=== PATIENT | female | born 1995 | race Caucasian/White ===

== ENCOUNTER 2018-04-23 16:29 | Emergency (ER) | payer BC, OTHER ==
[2018-04-23] MEDS ORDERED: LORAZEPAM 1 MG TABLET PO ONE (17:05)
--- NOTE | 2018-04-23 17:08 | ER Document Report ---
ED Medical Screen (RME) - General Chief Complaint: Chest Pain Stated Complaint: CHEST PAIN Time Seen by Provider: 04/23/18 17:00 Notes: RAPID MEDICAL EVALUATION DISCLOSURE I have seen this patient as part of a Rapid Medical Evaluation and, if applicable, placed any initially appropriate orders. The patient will be seen and fully evaluated, including a full history and physical exam, by a provider ( in Main ED or Fast Track) when a room becomes available. 22-year-old female here with 2 weeks of cough productive of green and clear sputum as well as shortness of breath and today started to have some chest pain radiating to the left shoulder with palpitations. She was seen at the urgent care and was sent here for further evaluation. Patient has tried over-the- counter remedies. She denies any prior history of pneumonia. EXAM Minimal diffuse coarse breath sounds, right greater than left Moderately tachycardic, regular rhythm NOTE Patient states she is very anxious about needles Ativan ordered to treat anxiety and allow placement of IV TRAVEL OUTSIDE OF THE [place] IN LAST 30 DAYS: No - Related Data Allergies/Adverse Reactions: No Known Allergies Allergy (Verified 04/23/18 17:02) Past Medical History - Social History Chew tobacco use (# tins/day): No Frequency of alcohol use: Occasional Drug Abuse: None Renal/ Medical History: Denies: Hx Peritoneal Dialysis - Immunizations Hx Diphtheria, Pertussis, Tetanus Vaccination: Yes
--- NOTE | 2018-04-23 18:10 | ER Document Report ---
ED General - General Chief Complaint: Chest Pain Stated Complaint: CHEST PAIN Time Seen by Provider: 04/23/18 17:00 Mode of Arrival: Ambulatory Information source: Patient Notes: 22 year old female presents to the ED with complaints of cough for the last 2 weeks. Productive in nature. Green sputum. Today began having shortness of breath and chest pain. Pain is a sharp sensation in the L lateral chest. No radiation. No alleviating or exacerbating factors. Went to urgent care today and was sent to the ED for further workup. TRAVEL OUTSIDE OF THE [place] IN LAST 30 DAYS: No - HPI Onset: Last week Onset/Duration: Gradual Quality of pain: Stabbing Severity: Mild Associated symptoms: Productive cough Exacerbated by: Denies Relieved by: Denies Similar symptoms previously: No Recently seen / treated by doctor: No - Related Data Allergies/Adverse Reactions: No Known Allergies Allergy (Verified 04/23/18 17:02) Past Medical History - Social History Smoking Status: Never Smoker Chew tobacco use (# tins/day): No Frequency of alcohol use: Occasional Drug Abuse: None Family History: Reviewed & Not Pertinent Patient has suicidal ideation: No Patient has homicidal ideation: No Renal/ Medical History: Denies: Hx Peritoneal Dialysis - Immunizations Hx Diphtheria, Pertussis, Tetanus Vaccination: Yes Review of Systems - Review of Systems Constitutional: No symptoms reported EENT: No symptoms reported Cardiovascular: Chest pain, Palpitations Respiratory: Cough, Short of breath, Sputum Gastrointestinal: No symptoms reported Genitourinary: No symptoms reported Musculoskeletal: No symptoms reported Skin: No symptoms reported Neurological/Psychological: No symptoms reported -: Yes All other systems reviewed and negative Physical Exam - Vital signs Vitals: Resp Pulse Ox 22 H 99 04/23/18 18:00 04/23/18 18:00 - Notes Notes: PHYSICAL EXAMINATION: GENERAL: Well-appearing, well-nourished and in no acute distress. HEAD: Atraumatic, normocephalic. EYES: Pupils equal round and reactive to light, extraocular movements intact, conjunctiva are normal. ENT: Nares patent, oropharynx clear without exudates. Moist mucous membranes. NECK: Normal range of motion, supple without lymphadenopathy LUNGS: Breath sounds clear to auscultation bilaterally and equal. No wheezes rales or rhonchi. HEART: Tachycardic. S1S2 appreciated. No murmurs. ABDOMEN: Soft, nontender, nondistended abdomen. No guarding, no rebound. No masses appreciated. Female : deferred Musculoskeletal: Normal range of motion, no pitting or edema. No cyanosis. NEUROLOGICAL: Cranial nerves grossly intact. Normal speech, normal gait. Normal sensory, motor exams PSYCH: Normal mood, normal affect. SKIN: Warm, Dry, normal turgor, no rashes or lesions noted. Course - Re-evaluation Re-evalutation: 04/23/18 22:05 Labs and imaging obtained. Troponin was within normal limits. CT of the chest was done as the patient is tachycardic. No PE was appreciated. No pneumonia. No pneumothorax. Patient does have an elevated white blood cell count. UA was done and is normal. Urine is negative. Urine drug screen is negative. I discussed admission with the patient as she continues to be tachycardic and symptomatic. Patient is refusing admission. I told the patient she would have to leave AGAINST MEDICAL ADVICE. I discussed the risks with the patient. The patient understands that she could or her condition could worsen by leaving AGAINST MEDICAL ADVICE. Patient is of sound mental capacity. - Vital Signs Vital signs: Temp Pulse Resp BP Pulse Ox 20 112/74 100 04/23/18 20:34 04/23/18 20:34 04/23/18 20:34 - Laboratory Result Diagrams: 04/23/18 17:45 04/23/18 17:45 Laboratory results interpreted by me: 04/23/18 04/23/18 04/23/18 17:15 17:45 17:45 WBC 23.3 H Seg Neuts % (Manual) 85 H Lymphocytes % (Manual) 7 L Abs Neuts (Manual) 19.8 H Abs Monocytes (Manual) 1.9 H Calcium 10.3 H Total Protein 8.5 H TSH 0.32 L Urine Ketones Urine Blood 04/23/18 18:31 WBC Seg Neuts % (Manual) Lymphocytes % (Manual) Abs Neuts (Manual) Abs Monocytes (Manual) Calcium Total Protein TSH Urine Ketones 80 H Urine Blood MODERATE H - EKG Interpretation by Me Additional EKG results interpreted by me: 04/23/18 18:13 EKG: Ventricular rate 138, MS interval 148, QRS duration 66, QTc 418, sinus tachycardia. No ischemic changes. Discharge - Discharge Clinical Impression: Palpitation Chest pain Qualifiers: Chest pain type: unspecified Qualified Code(s): R07.9 - Chest pain, unspecified Disposition: AGAINST MEDICAL ADVICE
[2018-04-23] MEDS: NORMAL SALINE 1000 ML 1,000 ML IV PRN ×2 (18:11→18:12)
[2018-04-23 18:14] LABS: HEMATOCRIT 42.5 % (36.0-47.0); HEMOGLOBIN 14.4 g/dL (12.0-15.5); MEAN CORPUSCULAR HEMOGLOBIN 29.9 pg (27.0-33.4); MEAN CORPUSCULAR HGB CONC 33.9 g/dL (32.0-36.0); MEAN CORPUSCULAR VOLUME 88 fl (80-97); PLATELET COUNT 297 10^3/uL (150-450); RED BLOOD COUNT 4.82 10^6/uL (3.72-5.28); RED CELL DISTRIBUTION WIDTH 12.9 % (11.5-14.0); WHITE BLOOD COUNT 23.3 10^3/uL (4.0-10.5)
--- NOTE | 2018-04-23 18:32 | RADIOLOGY REPORT (SQ) ---
EXAM DESCRIPTION: CHEST 2 VIEWS COMPLETED DATE/TIME: 04/23/2018 6:20 pm REASON FOR STUDY: eval pneumonia COMPARISON: None. EXAM PARAMETERS: NUMBER OF VIEWS: two views TECHNIQUE: Digital Frontal and Lateral radiographic views of the chest acquired. RADIATION DOSE: NA LIMITATIONS: none FINDINGS: LUNGS AND PLEURA: No opacities, masses or pneumothorax. No pleural effusion. MEDIASTINUM AND HILAR STRUCTURES: No masses or contour abnormalities. HEART AND VASCULAR STRUCTURES: Heart normal size. No evidence for failure. BONES: No acute findings. HARDWARE: None in the chest. OTHER: No other significant finding. IMPRESSION: NO ACUTE RADIOGRAPHIC FINDING IN THE CHEST. TECHNICAL DOCUMENTATION: JOB ID: [id number] [employer]- All Rights Reserved Reading location - IP/workstation name: [email or web address]
[2018-04-23 18:40] LABS: ABSOLUTE LYMPHOCYTES# (MANUAL) 1.6 10^3/uL (0.5-4.7); ABSOLUTE MONOCYTES # (MANUAL) 1.9 10^3/uL (0.1-1.4); ABSOLUTE NEUTROPHILS# (MANUAL) 19.8 10^3/uL (1.7-8.2); BASOPHILS % (MANUAL) 0 % (0-2); EOSINOPHILS % (MANUAL) 0 % (0-6); LYMPHOCYTES % (MANUAL) 7 % (13-45); MONOCYTES % (MANUAL) 8 % (3-13); PLATELET COMMENT ADEQUATE; SEGMENTED NEUTROPHILS % (MAN) 85 % (42-78); TOTAL CELLS COUNTED 100; TOXIC GRANULATION SLIGHT
[2018-04-23 18:44] LABS: ALANINE AMINOTRANSFERASE 33 U/L (9-52); ALBUMIN 4.9 g/dL (3.5-5.0); ALKALINE PHOSPHATASE 54 U/L (38-126); ANION GAP 16 (5-19); ASPARTATE AMINO TRANSFERASE 33 U/L (14-36); BILIRUBIN,DIRECT 0.3 mg/dL (0.0-0.4); BILIRUBIN,TOTAL 0.7 mg/dL (0.2-1.3); BLOOD UREA NITROGEN 15 mg/dL (7-20); CALCIUM 10.3 mg/dL (8.4-10.2); CARBON DIOXIDE 23 mmol/L (22-30); CHLORIDE 102 mmol/L (98-107); GLUCOSE 84 mg/dL (75-110); POTASSIUM 4.5 mmol/L (3.6-5.0); TOTAL PROTEIN 8.5 g/dL (6.3-8.2)
[2018-04-23 19:41] LABS: APPEARANCE,URINE CLEAR; BILIRUBIN,URINE NEGATIVE (NEGATIVE); COLOR,URINE YELLOW; GLUCOSE, URINE NEGATIVE (NEGATIVE); KETONES,URINE 80 mg/dL (NEGATIVE); LEUKOCYTE ESTERASE,URINE NEGATIVE (NEGATIVE); NITRITE,URINE NEGATIVE (NEGATIVE); PROTEIN,URINE NEGATIVE (NEGATIVE); URINE SPECIFIC GRAVITY 1.013; UROBILINOGEN,URINE NEGATIVE mg/dL (<2.0)
[2018-04-23 20:08] LABS: URINE AMPHETAMINES SCREEN NEGATIVE; URINE BARBITURATES SCREEN NEGATIVE; URINE BENZODIAZEPINES SCREEN NEGATIVE; URINE COCAINE SCREEN NEGATIVE; URINE MARIJUANA (THC) SCREEN NEGATIVE; URINE METHADONE SCREEN NEGATIVE; URINE PHENCYCLIDINE SCREEN NEGATIVE
--- NOTE | 2018-04-23 20:42 | RADIOLOGY REPORT (SQ) ---
EXAM DESCRIPTION: CTA CHEST COMPLETED DATE/TIME: 04/23/2018 8:07 pm REASON FOR STUDY: palpitations COMPARISON: Chest x-ray 04/23/2018 TECHNIQUE: CT scan of the chest performed using helical scanning technique with dynamic intravenous contrast injection. Images reviewed with lung, soft tissue and bone windows. Reconstructed coronal and sagittal MPR images reviewed. Additional 3 dimensional post-processing performed to develop Maximal Intensity Projection images (IA P). All images stored on PACS. All CT scanners at this facility use dose modulation, iterative reconstruction, and/or weight based d osing when appropriate to reduce radiation dose to as low as reasonably achievable (ALARA). [facility]: Dose Right [facility]: CareDose [facility]: Dose Right [facility]: Teradose 4D [facility]: [employer] CONTRAST TYPE AND DOSE: contrast/concentration: Isovue 370.00 mg/ml; Total Contrast Delivered: 76.0 ml; Total Saline Delivered: 70.0 ml Contrast bolus optimized for the pulmonary arteries. Not diagnostic for the aorta. RENAL FUNCTION: BUN 15 creatinine 0.67 RADIATION DOSE: CT Rad equipment meets quality standard of care and radiation dose reduction techniq ues were employed. CTDIvol: 19.8 - 20.6 mGy. DLP: 770 mGy-cm. . LIMITATIONS: None. FINDINGS: LUNGS AND PLEURA: No masses, infiltrates, or pneumothorax. No pleural effusions or pleura l calcifications. AORTA AND GREAT VESSELS: No aneurysm. Contrast bolus not optimized for the aorta. HEART: No pericardial effusion. No significant coronary artery calcifications. PULMONARY ARTERIES: No emboli visualized in the main pulmonary arteries or the segmental branches. HILAR AND MEDIASTINAL STRUCTURES: No identified masses or abnormal nodes. HARDWARE: None in the chest. UPPER ABDOMEN: No significant findings. Limited exam. THYROID AND OTHER SOFT TISSUES: No masses. No adenopathy. BONES: No acute or significant finding. 3D MIPS: Confirm above findings. OTHER: No other significant finding. IMPRESSION: NORMAL CTA OF THE CHEST. NO PULMONARY EMBOLI. COMMENT: Quality ID # [id number]: Final reports with documentation of one or more dose reduction techniques (e.g., Automated exposure control, adjustment of the mA and/or kV according to patient size, use of iterative reconstruction technique) TECHNICAL DOCUMENTATION: JOB ID: [id number] [employer]- All Rights Reserved Reading location - IP/workstation name: [email or web address]
[2018-04-23 21:11] VITALS: BP 112/74
[2018-04-23 21:22] LABS: FREE T4 (FREE THYROXINE) 1.32 ng/dL (0.78-2.19)
[2018-04-23 21:36] LABS: THYROID STIMULATING HORMONE 0.32 uIU/mL (0.47-4.68)
[2018-04-23 22:00] LABS: A TYPE INFLUENZA AG NEGATIVE (NEGATIVE); B INFLUENZA AG NEGATIVE (NEGATIVE)
--- NOTE | 2018-04-25 00:20 | EKG REPORT ---
SEVERITY:- OTHERWISE NORMAL ECG - SINUS TACHYCARDIA : Confirmed by: Zaira Looney MD 25-Apr-2018 00:20:10
== END 2018-04-23 22:20 | disposition left against medical advice (07) ==
LOC: ER 16:29
DX: R07.9 Chest pain, unspecified (principal); R00.2 Palpitations; R00.0 Tachycardia, unspecified; R05 Cough; R06.02 Shortness of breath; D72.829 Elevated white blood cell count, unspecified; Z53.20 Procedure and treatment not carried out because of patient's decision for unspecified reasons
CPT/HCPCS: 93005; 99285; 96360; 36415; 87040; 84439; 84443; 85025; 81025; 80053; 81001; 84484; 80307; 83605; 87804; 71046; 71275; 93010; J7030

== ENCOUNTER 2018-04-24 14:26 | Observation (INO) | payer BC ==
[2018-04-24] MEDS ORDERED: VANCOMYCIN HCL INJ 1000 MG VIAL IV ONE ×2 (14:45→22:09)
[2018-04-24] MEDS ORDERED: ACETAMINOPHEN 325 MG TABLET PO ONE (14:45)
--- NOTE | 2018-04-24 14:48 | ER Document Report ---
ED Medical Screen (RME) - General Chief Complaint: Breast Lump Stated Complaint: PAIN IN LEFT BREAST Time Seen by Provider: 04/24/18 14:40 Notes: RAPID MEDICAL EVALUATION DISCLOSURE I have seen this patient as part of a Rapid Medical Evaluation and, if applicable, placed any initially appropriate orders. The patient will be seen and fully evaluated, including a full history and physical exam, by a provider ( in Main ED or Fast Track) when a room becomes available. 22-year-old female back again today with continued symptoms but now is also having left breast pain redness (without drainage) and fever. She was seen yesterday and had a significant leukocytosis, tachycardia, and decided to leave AGAINST MEDICAL ADVICE when the ED physician recommended admission to the hospital. She states that when she went home, she told her mother and her mother became mad at her that she left AMA. She is now back and states she is willing to stay for admission. EXAM CTAB Tachycardic Left Lateral Breast with Erythema TRAVEL OUTSIDE OF THE [place] IN LAST 30 DAYS: No - Related Data Allergies/Adverse Reactions: No Known Allergies Allergy (Verified 04/24/18 14:28) Past Medical History - Social History Chew tobacco use (# tins/day): No Frequency of alcohol use: Occasional Drug Abuse: None Renal/ Medical History: Denies: Hx Peritoneal Dialysis - Immunizations Hx Diphtheria, Pertussis, Tetanus Vaccination: Yes Physical Exam - Vital signs Vitals: Temp Pulse Resp BP Pulse Ox 100.0 F 116 H 16 141/78 H 98 04/24/18 14:33 04/24/18 14:33 04/24/18 14:33 04/24/18 14:33 04/24/18 14:33 Course - Vital Signs Vital signs: Temp Pulse Resp BP Pulse Ox 100.0 F 116 H 16 141/78 H 98 04/24/18 14:33 04/24/18 14:33 04/24/18 14:33 04/24/18 14:33 04/24/18 14:33
[2018-04-24] MEDS ORDERED: LORAZEPAM INJ 2 MG/1 ML VIAL IM ONE (15:14)
[2018-04-24 15:52] LABS: ABSOLUTE LYMPHOCYTES (AUTO) 1.6 10^3/uL (0.5-4.7); ABSOLUTE MONOCYTES (AUTO) 1.1 10^3/uL (0.1-1.4); ABSOLUTE NEUT (AUTO) 7.6 10^3/uL (1.7-8.2); BASOPHILS % (AUTO) 0.2 % (0-2); EOSINOPHILS % (AUTO) 0.3 % (0-6); HEMATOCRIT 37.6 % (36.0-47.0); HEMOGLOBIN 12.8 g/dL (12.0-15.5); LYMPHOCYTES % (AUTO) 15.2 % (13-45); MEAN CORPUSCULAR HEMOGLOBIN 30.3 pg (27.0-33.4); MEAN CORPUSCULAR HGB CONC 33.9 g/dL (32.0-36.0); MEAN CORPUSCULAR VOLUME 89 fl (80-97); MONOCYTES % (AUTO) 10.3 % (3-13); PLATELET COUNT 253 10^3/uL (150-450); RED BLOOD COUNT 4.22 10^6/uL (3.72-5.28); RED CELL DISTRIBUTION WIDTH 12.8 % (11.5-14.0); TOTAL CELLS COUNTED % (AUTO) 100 %; WHITE BLOOD COUNT 10.3 10^3/uL (4.0-10.5)
[2018-04-24 16:15] LABS: ALANINE AMINOTRANSFERASE 19 U/L (9-52); ALBUMIN 4.3 g/dL (3.5-5.0); ALKALINE PHOSPHATASE 34 U/L (38-126); ANION GAP 11 (5-19); ASPARTATE AMINO TRANSFERASE 26 U/L (14-36); BILIRUBIN,DIRECT 0.3 mg/dL (0.0-0.4); BILIRUBIN,TOTAL 0.7 mg/dL (0.2-1.3); BLOOD UREA NITROGEN 9 mg/dL (7-20); CALCIUM 9.2 mg/dL (8.4-10.2); CARBON DIOXIDE 27 mmol/L (22-30); CHLORIDE 107 mmol/L (98-107); GLUCOSE 116 mg/dL (75-110); POTASSIUM 3.8 mmol/L (3.6-5.0); SODIUM 144.5 mmol/L (137-145); TOTAL PROTEIN 7.6 g/dL (6.3-8.2)
--- NOTE | 2018-04-24 16:18 | ER Document Report ---
ED General - General Chief Complaint: Breast Lump Stated Complaint: PAIN IN LEFT BREAST Time Seen by Provider: 04/24/18 14:40 TRAVEL OUTSIDE OF THE [place] IN LAST 30 DAYS: No - HPI Notes: Patient is a 22-year-old female with no significant past medical history presents to the ED complaining of left lateral breast pain that radiates up into her axilla with redness around the areola and tracking towards the axilla as well 1 day. Patient states that she has had pain in that area over the last couple days, but noticed the redness today. Patient also states that she has had a fast heart rate and did have shortness of breath/chest pain yesterday which has since resolved. Patient states that she has had a dry nonproductive cough for the last 2 weeks. She was evaluated yesterday and had a full workup that was unremarkable for acute pathology aside from a low TSH. She has been eating and drinking without any difficulties. She is urinating normally and having normal bowel movements. Denies any smoking, IV drug use, cancer, previous DVT/PE, prolonged immobilization, recent surgery/trauma, hormone use. Denies any headache, fever, neck pain, URI, sore throat, chest pain, syncope, cough, shortness of breath, wheeze, dyspnea, abdominal pain, nausea/vomiting/ diarrhea, urinary retention, dysuria, hematuria. - Related Data Allergies/Adverse Reactions: No Known Allergies Allergy (Verified 04/24/18 14:28) Past Medical History - Social History Smoking Status: Never Smoker Chew tobacco use (# tins/day): No Frequency of alcohol use: Occasional Drug Abuse: None Family History: Reviewed & Not Pertinent Patient has suicidal ideation: No Patient has homicidal ideation: No Renal/ Medical History: Denies: Hx Peritoneal Dialysis - Immunizations Hx Diphtheria, Pertussis, Tetanus Vaccination: Yes Review of Systems - Review of Systems -: Yes All other systems reviewed and negative Physical Exam - Vital signs Vitals: Temp Pulse Resp BP Pulse Ox 100.0 F 116 H 16 141/78 H 98 04/24/18 14:33 04/24/18 14:33 04/24/18 14:33 04/24/18 14:33 04/24/18 14:33 - Notes Notes: PHYSICAL EXAMINATION: Accompanied by female nurse, Sonia. GENERAL: Well-appearing, well-nourished and in no acute distress. HEAD: Atraumatic, normocephalic. EYES: Pupils equal round and reactive to light, extraocular movements intact, sclera anicteric, conjunctiva are normal. ENT: Nares patent and without discharge. oropharynx clear without exudates. No tonsilar hypertrophy or erythema. Moist mucous membranes. NECK: Normal range of motion, supple without lymphadenopathy Breast: There is erythema around the areola and tracking into the left axilla. + tenderness to the left lateral breast with palpable mass/inflamed tissue palpated deep left breast. LUNGS: Breath sounds clear to auscultation bilaterally and equal. No wheezes rales or rhonchi. HEART: Tachycardia regular rhythm without murmurs, rubs, gallops. ABDOMEN: Soft, nontender, nondistended abdomen. No guarding, no rebound. No masses appreciated. Normal bowel sounds present. No CVA tenderness bilaterally. Musculoskeletal: FROM to passive/active. Strength 5+/5. Extremities: No cyanosis, clubbing, or edema b/l. Peripheral pulses 2+. Capillary refill less than 3 seconds. NEUROLOGICAL: Cranial nerves grossly intact. Normal speech, normal gait. PSYCH: Normal mood, normal affect. SKIN: Warm, Dry, normal turgor, no rashes or lesions noted. Course - Re-evaluation Re-evalutation: 04/24/18 16:40 Pt starting becoming flush with a rash after starting vanc. benadryl and pepcid were given IV. 04/24/18 18:05 Pt had complete resolution of presumed reaction with Vanc. We will now start cleocin. Dr. Chambers was consulted who also eval'd the patient. Recommended US and consult with general surgeon. I did notify Dr. Vance who is aware of this patient and wanted the US as well prior to his eval. 04/24/18 18:59 US showed mass vs complex cyst/abscess. With patient's presentation, we suspect abscess/infection. Dr. Vance eval'd the patient and will accept to admission under his care. He would like her to have Morphine IV as well as Lactic ordered. NPO after midnight. - Vital Signs Vital signs: Temp Pulse Resp BP Pulse Ox 98.3 F 116 H 26 H 130/84 H 97 04/24/18 18:26 04/24/18 14:33 04/24/18 16:01 04/24/18 16:00 04/24/18 16:25 - Laboratory Result Diagrams: 04/24/18 15:31 04/24/18 15:31 Laboratory results interpreted by me: 04/24/18 04/24/18 15:31 15:31 Glucose 116 H Alkaline Phosphatase 34 L TSH 0.46 L Discharge - Discharge Clinical Impression: Breast abscess Condition: Stable Disposition: ADMITTED INPATIENT Admitting Provider: Surgicalist - Dr. Vance Unit Admitted: Surgical Floor
[2018-04-24] MEDS ORDERED: DIPHENHYDRAMINE HCL 50 MG/ML VIAL IV ONE (16:38)
[2018-04-24] MEDS ORDERED: FAMOTIDINE INJ/PF 20 MG/2 ML SDV IV ONE (16:38)
[2018-04-24 17:07] LABS: FREE T3 3.01 pg/mL (2.77-5.27); FREE T4 (FREE THYROXINE) 1.16 ng/dL (0.78-2.19)
[2018-04-24 17:21] LABS: THYROID STIMULATING HORMONE 0.46 uIU/mL (0.47-4.68)
[2018-04-24] MEDS ORDERED: CLINDAMYCIN 600 MG/D5W RTU 600 MG/50 ML RTUPB IV ONE (18:04)
--- NOTE | 2018-04-24 18:13 | RADIOLOGY REPORT (SQ) ---
EXAM DESCRIPTION: U/S BREAST UNILATERAL LIMITED COMPLETED DATE/TIME: 04/24/2018 6:03 pm REASON FOR STUDY: left lateral breast mass/infection COMPARISON: None TECHNIQUE: Static and Realtime grayscale interrogation of focal area(s) of concern in the left breas t(s) acquired. Selected color doppler/spectral images saved to PACS. LIMITATIONS: None. FINDINGS: Masses:Complex hypoechoic 2 o'clock 2 cm from nipple measuring 1.3 x 1.3 x 0.9 cm. Robotic Technician al echoes. No definite through transmission. Architecture:No alteration of normal morphology. No skin thickening. Generalized edema. . Other: None. IMPRESSION: Mass versus complex cyst/abscess in the left breast. BIRAD: 1 Negative. RECOMMENDATION: RECOMMENDED FOLLOW-UP: Follow-up as clinically indicated. COMMENT: The [employer] (A[employer]) has developed recommendations for screening MRI of the breasts in certain patient populations, to be used in conjunction with mammography. Breast MRI s urveillance may be appropriate for women with more than 20% lifetime risk of developing breast cancer as determined by genetic testing, significant family history of the disease, or history of mantle r adiation for Hodgkins Disease. ACR Practice Guidelines 2008. TECHNICAL DOCUMENTATION: FINDING NUMBER: (1) ASSESSMENT: (1) JOB ID: [id number] [email or web address]- All Rights Reserved Reading location - IP/workstation name: [email or web address]
[2018-04-24] MEDS ORDERED: MORPHINE SULFATE 10 MG/ML INJ IV ONE (18:59)
--- NOTE | 2018-04-24 19:55 | PDOC H&P ---
History of Present Illness Admission Date/PCP: 04/24/18 19:07 Patient complains of: left breast pains History of Present Illness: RILEY MONTOYA is a 22 year old female who has been c/o left breast pains past 2 days.Noted chills and fever today. Seen at ED. US suspicious for an abscess. Social History Smoking Status: Never Smoker Family History Family History: Reviewed & Not Pertinent Parental Family History Reviewed: Yes Children Family History Reviewed: No Sibling(s) Family History Reviewed.: No Medication/Allergy Home Medications: Acetylcysteine [Nac] 600 mg PO DAILY 04/24/18 Multivit-Min/Folic Acid/Biotin [Hair, Skin & Nails Caplet] 1 each PO DAILY 04/24 Allergies/Adverse Reactions: No Known Allergies Allergy (Verified 04/24/18 19:12) Review of Systems Constitutional: PRESENT: chills, fever(s) Eyes: PRESENT: other - no visual/hearing changes Breasts: PRESENT: as per HPI Cardiovascular: PRESENT: other - no chest pains/cough Gastrointestinal: PRESENT: other - no pains Genitourinary: PRESENT: other - no dysuria Neurological: PRESENT: other - no seizures Hematologic/Lymphatic: PRESENT: other - no easy bruising Physical Exam Vital Signs: Temp Pulse Resp BP Pulse Ox 98.3 F 116 H 26 H 130/84 H 97 04/24/18 18:26 04/24/18 14:33 04/24/18 16:01 04/24/18 16:00 04/24/18 16:25 General appearance: PRESENT: mild distress Head exam: PRESENT: atraumatic Eye exam: PRESENT: conjunctiva pink Mouth exam: PRESENT: moist Neck exam: PRESENT: full ROM Respiratory exam: PRESENT: clear to auscultation grzegorz Cardiovascular exam: PRESENT: tachycardia Pulses: PRESENT: normal radial pulses Vascular exam: PRESENT: normal capillary refill GI/Abdominal exam: PRESENT: soft - non tender Rectal exam: PRESENT: deferred Extremities exam: PRESENT: full ROM Musculoskeletal exam: PRESENT: full ROM Neurological exam: PRESENT: alert, oriented to person, oriented to place, oriented to time, oriented to situation Psychiatric exam: PRESENT: appropriate affect Skin exam: PRESENT: normal color, warm Results Impressions: Breast Ultrasound 04/24/18 17:10 IMPRESSION: Mass versus complex cyst/abscess in the left breast. Assessment & Plan - Time Time Spent: 30 to 50 Minutes - Inpatient Certification Medical Necessity: Need For IV Fluids, Need for Pain Control, Need for IV Antibiotics, Need for Surgery, Risk of Complication if Not Cared For in Hospital - Plan Summary Plan Summary: IV antibiotics Hydrate For I&D in am. Just had food intake in rhe ER.
[2018-04-24] MEDS ORDERED: NORMAL SALINE 1000 ML 1,000 ML IV PRN (22:04)
[2018-04-24] MEDS ORDERED: ONDANSETRON HCL INJ/PF 4 MG/2 ML SDV IV PRN (22:04)
[2018-04-24] MEDS ORDERED: VANCOMYCIN HCL 1,000 MG in DEXTROSE 5%-WATER 250 ML IV ONE ×4 (23:00)
[2018-04-24] MEDS ORDERED: CEFAZOLIN INJ 1 GM VIAL ONE (23:22)
[2018-04-24] MEDS ORDERED: VANCOMYCIN HCL INJ 1000 MG VIAL ONE (23:22)
[2018-04-25] MEDS: CEFAZOLIN 2 GM/D5W RTU 2 GM/50 ML RTUPB IV SCH ×3 (03:57→11:56)
[2018-04-25] MEDS: MORPHINE SULFATE 10 MG/ML INJ IV PRN ×2 (06:15→10:05)
[2018-04-25 06:22] LABS: ABSOLUTE EOSINOPHILS # (AUTO) 0.3 10^3/uL (0.0-0.6); ABSOLUTE LYMPHOCYTES (AUTO) 1.9 10^3/uL (0.5-4.7); ABSOLUTE MONOCYTES (AUTO) 1.1 10^3/uL (0.1-1.4); ABSOLUTE NEUT (AUTO) 5.7 10^3/uL (1.7-8.2); BASOPHILS % (AUTO) 0.4 % (0-2); EOSINOPHILS % (AUTO) 2.9 % (0-6); HEMATOCRIT 37.8 % (36.0-47.0); HEMOGLOBIN 12.7 g/dL (12.0-15.5); LYMPHOCYTES % (AUTO) 21.1 % (13-45); MEAN CORPUSCULAR HEMOGLOBIN 30.6 pg (27.0-33.4); MEAN CORPUSCULAR HGB CONC 33.6 g/dL (32.0-36.0); MEAN CORPUSCULAR VOLUME 91 fl (80-97); PLATELET COUNT 251 10^3/uL (150-450); RED BLOOD COUNT 4.16 10^6/uL (3.72-5.28); SEGMENTED NEUTROPHILS % (AUTO) 63.6 % (42-78); TOTAL CELLS COUNTED % (AUTO) 100 %; WHITE BLOOD COUNT 8.9 10^3/uL (4.0-10.5)
[2018-04-25] MEDS ORDERED: MORPHINE SULFATE 10 MG/ML INJ ONE ×2 (07:28→10:28)
[2018-04-25] MEDS ORDERED: MIDAZOLAM 2 MG/2 ML INJ ONE (07:28)
[2018-04-25] MEDS ORDERED: FENTANYL CITRATE INJ/PF 100 MCG/2 ML AMPUL ONE (07:28)
[2018-04-25] MEDS ORDERED: PROPOFOL INJ 200 MG/20 ML VIAL IV ONE (07:28)
[2018-04-25] MEDS ORDERED: DEXMEDETOMIDINE INJ 80 MCG/20 ML VIAL IV ONE (08:16)
[2018-04-25] MEDS ORDERED: PROMETHAZINE HCL INJ 25 MG/1 ML VIAL IV PRN (08:49)
[2018-04-25] MEDS ORDERED: FENTANYL CITRATE INJ/PF 100 MCG/2 ML AMPUL IV PRN ×3 (08:49)
[2018-04-25] MEDS ORDERED: DIPHENHYDRAMINE HCL 50 MG/ML VIAL IV PRN (08:49)
[2018-04-25] MEDS ORDERED: BUPIVACAINE HCL 0.5 % INJ/PF 30 ML SDV ONE (09:30)
[2018-04-25] MEDS ORDERED: ACETAMINOPHEN 325 MG TABLET PO PRN (10:40)
--- NOTE | 2018-04-25 10:40 | OPERATIVE REPORT E ---
Operative Report NAME: RILEY MONTOYA : 1995 AGE: 22Y DATE OF SURGERY: 04/25/2018 ROOM: 415 PREOPERATIVE DIAGNOSIS: Abscess, left breast. POSTOPERATIVE DIAGNOSIS: Abscess and cellulitis, left breast. PROCEDURE PERFORMED: Needle aspiration, left breast abscess. SURGEON: LOLI ENAMORADO M.D. ANESTHESIA: Local, MAC. INDICATIONS: This is a 72-year-old female with pains in the left breast for the past 3 to 4 days. She went to the ED 2 days ago and noted to have a white count of 20,000. She came back last night and noted to be tachycardic with white count normal. She was then admitted and placed on IV antibiotics. This morning she is still operator brandy in the left upper outer quadrant of the left breast. An ultrasound was done in the holding room and I was not able to identify the definite abscess site. *------* very tender and there is a hardening or firmness in the left upper outer quadrant where the tenderness is. She was then taken to the OR to try to aspirate and if there is any aspiration of definite abscess site an I and D will be done. DESCRIPTION OF PROCEDURE: Under IV sedation the patient was placed in supine position and the left breast prepped and draped in the usual sterile fashion. The local anesthesia was infiltrated over the mid part of the area that is quite firm. The area was then attempted to aspirate using an 18-gauge needle. Both times there was a minimal amount of light purulent material noted, less than 0.5 mL. Because there is no definite large abscess, incision drain was held. Patient will be continued on p.o. antibiotics and follow up in the surgical clinic. The procedure was then terminated. Sterile Band-Aid was placed over the aspiration site. The patient tolerated the procedure well and left the recovery room in satisfactory condition. DICTATING PHYSICIAN: LOLI ENAMORADO M.D. [id number] PHY#: [id number] ID: [id number] JOB#: [id number] ACCT: [id number] cc:LOLI ENAMORADO M.D. >
[2018-04-25] MEDS ORDERED: ONDANSETRON 4 MG TAB.RAPDIS PO PRN (11:52)
[2018-04-25] MEDS ORDERED: CLINDAMYCIN HCL 150 MG CAPSULE PO SCH (12:00)
[2018-04-25 17:05] VITALS: BP 105/65
--- NOTE | 2018-04-26 07:10 | DISCHARGE SUMMARY E ---
Discharge Summary NAME: RILEY MONTOYA : 1995 AGE: 22Y ADMITTED: 04/24/2018 DISCHARGED: 04/25/2018 PROCEDURE: Aspiration left breast abscess done 04/25/[address] Vance. HOSPITAL COURSE: This is a 22-year-old female, who has been complaining of left breast pain for the past 3 days. About 2 days ago, the patient was seen in the emergency room, where she was noted to have a white count of 20,000. She had been complaining of pain along the left breast. Unfortunately, the patient apparently signed AMA, only to come back last night with the same left breast pains. She had an ultrasound of the left breast, which showed possible multicystic lesion and abscess cavity ruled out. In the meantime, her white count in the emergency room came down to normal. She was admitted, continued intravenous antibiotics and scheduled for aspiration/I and D of left breast abscess. The patient underwent aspiration of left breast abscess on 04/25/2018. A minimal amount of questionable purulent material, less than 0.5 mL was done. Specimen was sent for C and S. No I and D was performed. Most likely the patient has also fibrocystic disease of the left breast, which is also painful and may be more of fibrocystic disease rather than abscess. At any rate, the patient discharged on p.o. clindamycin 300 mg 3 times a day for the next 10 days. The patient advised to follow up in the Surgical Clinic in about 2 weeks. FINAL DIAGNOSIS: LEFT BREAST ABSCESS/LEFT BREAST FIBROCYSTIC DISEASE. DICTATING PHYSICIAN: LOLI VANCE M.D. [id number] PHY#: [id number] ID: [id number] JOB#: [id number] ACCT: [id number] cc:Wisam WEBB MD, M.D. [facility],
== END 2018-04-25 17:00 | disposition home or self-care (01) ==
LOC: ER 14:26 → EH 19:07 → INTOOBSV 19:07 → 4N 20:41
PROVIDERS: ATTEND Surgery
PROC: 0H9U3ZX Drainage of Left Breast, Percutaneous Approach, Diagnostic (ICD-10-PCS; principal; 2018-04-25 10:30)
DX: N61.1 Abscess of the breast and nipple (principal); N60.12 Diffuse cystic mastopathy of left breast; R50.9 Fever, unspecified; R00.0 Tachycardia, unspecified; R05 Cough
CPT/HCPCS: 99285; 96372; 96375; 96365; 96367; 36415 ×2; 87040; 87070; 84439; 87205; 84443; 85025 ×2; 80053; 84481; 83605; 76642; 10160; G0378 ×2; G0379; J2250; J3490 ×2; J1200; S0119; J2270 ×2; J2060; J7060; J7030; J2704; J3370 ×2; S0028; J0690; 400; J3010